=== PATIENT | female | born 1980 | race Caucasian/White ===

== ENCOUNTER 2022-03-04 14:10 | Day surgery (SDC) | payer OTHER ==
[~2022-03-04] VITALS: Ht 162.6 cm; Wt 42.6 kg
== END 2022-03-04 19:20 | disposition home or self-care (01) ==
LOC: CIR.AMB 14:10
PROVIDERS: ATTEND Obstetrics & Gynecology Maternal & Fetal Medicine
DX: O02.1 Missed abortion (principal); O72.2 Delayed and secondary postpartum hemorrhage; Z20.822 Contact with and (suspected) exposure to COVID-19

== ENCOUNTER 2023-10-23 13:30 | Inpatient (IN) | payer OTHER ==
[~2023-10-23] VITALS: Ht 149.9 cm; Wt 56.7 kg
[2023-11-04] MEDS ORDERED: OXYTOCIN 10 UNITS/ML VIAL ONE ×2 (11:47→15:18)
[2023-11-04] MEDS ORDERED: ERYTHROMYCIN BASE 1 GM TUBE OP ONE (11:47)
[2023-11-04] MEDS ORDERED: PRENATAL MULTI1 EAC3 PO (11:54)
[2023-11-04] MEDS ORDERED: CEFOXITIN SODIUM 2,000 MG VIAL IV NR (12:00)
[2023-11-04] MEDS ORDERED: CITRIC ACID/SODIUM CITRATE 30 ML BLIST.PACK PO NR (12:00)
[2023-11-04 12:23] LABS: BILIRUBIN TOTAL 0.45 mg/dL (0.3-1.2); CALCIUM 9.4 mg/dL (8.5-10.1); CREATININE SERUM 0.52 mg/dL (0.55-1.02); GFR 129.32; GLOBULINA 3.5 G/DL (2.4-3.5); POTASSIUM 3.49 mEq/L (3.5-5.1); TOTAL PROTEIN 6.5 gm/dL (6.4-8.2)
[2023-11-04 12:24] LABS: HEMATOCRIT 38.4 % (36.0-45.00); HEMOGLOBIN 13.1 g/dL (12.0-15.00); MEAN CELL VOLUME 95.1 fL (80.00-100.00); MEAN CORPUSCULAR HEMOGLOBIN 32.5 pg (27.00-32.0); MEAN CORPUSCULAR HGB CONC 34.1 g/dl (32.0-36.0); PLATELET COUNT 248 K/uL (150-450); RED BLOOD COUNT 4.04 M/uL (4.00-6.00); RED CELL DISTRIBUTION WIDTH 14.5 % (11.5-14.5)
[2023-11-04 12:32] LABS: INR < 0.93; PARTIAL THROMBOPLASTIN TIME 23.9 SECONDS (22.0-34.0); PROTHROMBIN TIME 9.4 SECONDS (9.0-11.5)
[2023-11-04] MEDS ORDERED: RINGERS SOLUTION,LACTATED 1,000 ML IV SCH ×2 (12:45→14:30)
[2023-11-04] MEDS ORDERED: MEPERIDINE HCL/PF 25 MG/ML VIAL IM PRN (14:30)
[2023-11-04] MEDS ORDERED: PROMETHAZINE HCL 25 MG/ML AMPUL IM PRN (14:30)
[2023-11-04] MEDS ORDERED: OXYTOCIN 20 UNITS in RINGERS SOLUTION,LACTATED 1,000 ML IV SCH (14:30)
[2023-11-04] MEDS ORDERED: KETOROLAC TROMETHAMINE 30 MG VIAL IM NR (14:45)
[2023-11-04] MEDS ORDERED: KETOROLAC TROMETHAMINE 30 MG VIAL ONE (15:50)
[2023-11-04] MEDS ORDERED: SIMETHICONE 125 MG CAPSULE PO SCH (17:00)
[2023-11-04] MEDS ORDERED: KETOROLAC TROMETHAMINE 10 MG TABLET PO SCH (18:00)
[2023-11-04 18:50] LABS: HEMATOCRIT 34.2 % (36.0-45.00); HEMOGLOBIN 11.6 g/dL (12.0-15.00); MEAN CELL VOLUME 95.2 fL (80.00-100.00); MEAN CORPUSCULAR HEMOGLOBIN 32.3 pg (27.00-32.0); MEAN CORPUSCULAR HGB CONC 33.9 g/dl (32.0-36.0); PLATELET COUNT 243 K/uL (150-450); RED BLOOD COUNT 3.59 M/uL (4.00-6.00); RED CELL DISTRIBUTION WIDTH 14.3 % (11.5-14.5)
[2023-11-04] MEDS ORDERED: CEFAZOLIN SODIUM 1,000 MG VIAL IV SCH (21:00)
[2023-11-05 08:33] LABS: HEMATOCRIT 32.6 % (36.0-45.00); MEAN CELL VOLUME 95.6 fL (80.00-100.00); MEAN CORPUSCULAR HEMOGLOBIN 32.2 pg (27.00-32.0); MEAN CORPUSCULAR HGB CONC 33.7 g/dl (32.0-36.0); PLATELET COUNT 238 K/uL (150-450); RED BLOOD COUNT 3.41 M/uL (4.00-6.00); RED CELL DISTRIBUTION WIDTH 14.5 % (11.5-14.5)
[2023-11-05] MEDS ORDERED: OxyCODONE HCL/APAP UD (PERCOCET) PO SCH (13:00)
[2023-11-06] MEDS ORDERED: OXYC1TAB9 PO (07:54)
[2023-11-06] MEDS ORDERED: KETO10TA2 PO (07:54)
== END 2023-11-06 13:51 | disposition home or self-care (01) | DRG 788 ==
LOC: OB/GYN 11-04 11:15 → LDR 11-04 11:15 → OB/GYN 11-04 13:53
PROVIDERS: ADMIT Obstetrics & Gynecology Maternal & Fetal Medicine; ATTEND Obstetrics & Gynecology Maternal & Fetal Medicine
PROC: 4A1HXCZ Monitoring of Products of Conception, Cardiac Rate, External Approach (ICD-10-PCS; 2023-11-04)
PROC: 10D00Z1 Extraction of Products of Conception, Low, Open Approach (ICD-10-PCS; principal; 2023-11-04 12:00)
DX: O36.8130 Decreased fetal movements, third trimester, not applicable or unspecified (principal); O99.824 Streptococcus B carrier state complicating childbirth; Z3A.39 39 weeks gestation of pregnancy; Z37.0 Single live birth; Z20.822 Contact with and (suspected) exposure to COVID-19

== ENCOUNTER 2023-11-03 15:47 | Outpatient (CLI) | payer OTHER ==
[2023-11-04] MEDS ORDERED: PRENATAL MULTI1 EAC3 PO (11:54)
== END 2023-11-03 16:37 | disposition home or self-care (01) ==
LOC: NST 15:47
PROVIDERS: ATTEND Obstetrics & Gynecology Maternal & Fetal Medicine
DX: Z34.83 Encounter for supervision of other normal pregnancy, third trimester (principal)

== ENCOUNTER 2023-11-04 10:03 | Outpatient (CLI) | payer OTHER ==
[2023-11-04] MEDS ORDERED: PRENATAL MULTI1 EAC3 PO (11:54)
== END 2023-11-04 11:13 | disposition home or self-care (01) ==
LOC: NST 10:03
PROVIDERS: ATTEND Obstetrics & Gynecology Maternal & Fetal Medicine
DX: Z34.83 Encounter for supervision of other normal pregnancy, third trimester (principal)